=== PATIENT | female | born 1955 | race Caucasian/White ===

== ENCOUNTER 2019-06-01 11:42 | Emergency (ER) | payer OTHER ==
[2019-06-01 11:52] VITALS: BP 173/61; PULSE 95; TEMP 98.1; BMI 27.6
[2019-06-01] MEDS ORDERED: ACETAMINOPHEN 325 MG TABLET (FP) PO ONE (12:31)
[2019-06-01] MEDS ORDERED: LIDOCAINE 5% TOPICAL PATCH TP ONE ×2 (12:32→12:59)
--- NOTE | 2019-06-01 12:55 | PDOC ---
History of Present Illness - General Chief Complaint: Injury Stated Complaint: FALL Time Seen by Provider: 06/01/19 11:53 History Source: Patient Exam Limitations: No Limitations - History of Present Illness Is this a multiple visit Asthma Patient?: No Past History - Travel Traveled outside of the country in the last 30 days: No Close contact w/someone who was outside of country & ill: No - Past Medical History Allergies/Adverse Reactions: Allergies Allergy/AdvReac Type Severity Reaction Status Date / Time morphine Allergy Verified 06/01/19 11:52 Home Medications: Ambulatory Orders Methocarbamol [Robaxin -] 500 mg PO BID #14 tablet 06/01/19 COPD: No HTN: Yes - Psycho Social/Smoking Cessation Hx Smoking History: Never smoked Information on smoking cessation initiated: No Hx Alcohol Use: No Drug/Substance Use Hx: No Review of Systems - Review of Systems Able to Perform ROS?: Yes Comments:: 06/01/19 12:32 CONSTITUTIONAL: Absent: fever, chills, diaphoresis, generalized weakness, malaise, loss of appetite HEENT: Absent: rhinorrhea, nasal congestion, throat pain, throat swelling, difficulty swallowing, mouth swelling, ear pain, eye pain, visual Changes MUSCULOSKELETAL: Present: R shoulder pain, low back pain, R ankle pain Absent: arthralgia, joint swelling SKIN: Absent: rash, itching, pallor NEUROLOGIC: Absent: headache, focal weakness or paresthesias, dizziness, unsteady gait, seizure, mental status changes, bladder or bowel incontinence PSYCHIATRIC: Absent: anxiety, depression, suicidal or homicidal ideation, hallucinations. Is the patient limited Hungarian proficient: No *Physical Exam - Vital Signs Last Vital Signs Temp Pulse Resp BP Pulse Ox 98.1 F 95 H 18 173/61 H 98 06/01/19 11:49 06/01/19 11:49 06/01/19 11:49 06/01/19 11:49 06/01/19 11:49 - Physical Exam Comments: 06/01/19 13:47 GENERAL: Well developed, well nourished. Awake and alert. No acute distress. HEENT: Normocephalic, atraumatic. PERRLA, EOMI. No conjunctival pallor. Sclera are non- icteric. Moist mucous membranes. Oropharynx is clear. NECK: Supple. Full ROM. No JVD. Carotid pulses 2+ and symmetric, without bruits. No thyromegaly. No lymphadenopathy. CARDIOVASCULAR: Regular rate and rhythm. No murmurs, rubs, or gallops. Distal pulses are 2+ and symmetric. PULMONARY: No evidence of respiratory distress. Lungs clear to auscultation bilaterally. No wheezing, rales or rhonchi. ABDOMINAL: Soft. Non-tender. Non-distended. No rebound or guarding. No organomegaly. Normoactive bowel sounds. MUSCULOSKELETAL Tenderness palpation of the right paraspinous muscles L3-L5 with palpable spasm. Negative straight leg raise test. No midline tenderness. Tenderness to palpation of the right lateral and medial malleolus of the ankle. Full range of motion of the ankle noted. No swelling noted. Patient with tenderness to palpation of the right trapezius muscle near the shoulder joint. Full range of motion of the shoulder noted. Negative drop arm test. Normal range of motion at all joints. No bony deformities or tenderness. No CVA tenderness. EXTREMITIES: No cyanosis. No clubbing. No edema. No calf tenderness. SKIN: Warm and dry. Normal capillary refill. No rashes. No jaundice. NEUROLOGICAL: Alert, awake, appropriate. Cranial nerves 2-12 intact. No deficits to light touch and temperature in face, upper extremities and lower extremities. No motor deficits in the in face, upper extremities and lower extremities. Normoreflexic in the upper and lower extremities. Normal speech. Toes are down- going bilaterally. Gait is normal without ataxia. PSYCHIATRIC: Cooperative. Good eye contact. Appropriate mood and affect. Medical Decision Making - Medical Decision Making 06/01/19 15:41 The patient is a 63-year-old female who presents to the ER today for injuries from a fall. She works in the [employer]. She states that she tripped over a power cord to a slow cooker while working today. She landed on her right side. Denies hitting her head or losing consciousness. She is now complaining of right-sided pain including right shoulder pain, right ankle pain and right lower back pain. Denies fevers, chills, loss of consciousness, head injury, numbness and tingling weakness of his extremities, saddle anesthesia and bladder bowel incontinence. A/P: Injuries from a fall See exam for physical findings X-rays of the shoulder, back and ankle show no acute pathology at this time. Most likely a muscle spasm of the low back causing the pain. Possible ankle sprain and shoulder sprain Recommend supportive therapy and PCP follow-up Discharge home I discussed the physical exam findings, ancillary test results and final diagnoses with the patient. I answered all of the patient's questions. The patient was satisfied with the care received and felt comfortable with the discharge plan and treatment plan. The Patient agrees to follow up with the primary care physician/specialist within 24-72 hours. Return precautions were given. Discharge - Discharge Information Problems reviewed: Yes Clinical Impression/Diagnosis: Fall Qualifiers: Encounter type: initial encounter Qualified Code(s): W19.XXXA - Unspecified fall, initial encounter Low back pain Qualifiers: Chronicity: acute Back pain laterality: right Sciatica presence: without sciatica Qualified Code(s): M54.5 - Low back pain Ankle pain Qualifiers: Chronicity: acute Laterality: right Qualified Code(s): M25.571 - Pain in right ankle and joints of right foot Shoulder pain Qualifiers: Chronicity: acute Laterality: right Qualified Code(s): M25.511 - Pain in right shoulder Disposition: HOME - Admission No - Additional Discharge Information Prescriptions: Methocarbamol [Robaxin -] 500 mg PO BID #14 tablet - Follow up/Referral Referrals: Tiffanie Jeffries MD [Primary Care Provider] - - Patient Discharge Instructions Patient Printed Discharge Instructions: DI for Low Back Pain Additional Instructions: You have low back pain due to a muscle spasm. Please take Tylenol 650 mg every 4 hours as needed for pain. You were also prescribed Robaxin. Please take this medication twice a day. Do not drive after taking this medication as it may make you sleepy. You may use warm compresses on your back to help with her symptoms. Please follow-up with your primary care doctor. If your symptoms do not resolve in 3-5 days, follow-up with orthopedics. A referral has been provided for you. You may also purchase lidocaine patches. These are over-the- counter. If you have trouble finding then please ask the pharmacist. Return to the emergency department if you have worsening back pain, bladder or bowel incontinence, numbness and tingling in her legs, changes in the way you walk, or any new or worsening symptoms. - Post Discharge Activity Work/Back to School Note: Back to Work
[2019-06-01] MEDS ORDERED: LIDOCAINE 5% TOPICAL PATCH ONE ×2 (12:56→12:59)
[2019-06-01] MEDS ORDERED: ACETAMINOPHEN 325 MG TABLET (FP) ONE (12:56)
--- NOTE | 2019-06-01 16:55 | RAPID ---
Physical Examination Vital Signs: Vital Signs Temperature 98.1 F 06/01/19 11:49 Pulse Rate 95 H 06/01/19 11:49 Respiratory Rate 18 06/01/19 11:49 Blood Pressure 173/61 H 06/01/19 11:49 O2 Sat by Pulse Oximetry (%) 98 06/01/19 11:49 Rapid Response - Rapid Response Assessment: Subjective: Rapid response was called overhead at 1135 today. scallop binder team quickly responded to cafeteria where patient was sitting on the floor between avila register and stove. Cafeteria staff and nursing informatics clinical analyst were surrounding patient. She reports tripping on a wire on the floor and falling on her right hip. She also hit her right shoulder on the stove. She denies hitting her head, dizziness, or loss of consciousness. She also denies numbness or tingling in feet. She stood up with assistance and was put in a wheelchair and immediately sent to ED. Objective: Vitals 201/89 98% 103HR PE A&O x 3 in no acute distress heart RRR lungs CTA bilaterally abdomen soft and non-tender right upper back and lumbar tender to palpation A/P: #mechanical fall Pt in no distress. Sent to ED for evaluation. Signed out to ED staff. #hypertension Pt reports taking HTN meds this morning. Notified nurse dining services manager and triage nurse of elevated pressure.
== END 2019-06-01 13:53 | disposition home or self-care (01) ==
LOC: JERFT 11:42
DX: M25.511 Pain in right shoulder (principal); M54.5 Low back pain; M25.571 Pain in right ankle and joints of right foot; Y99.0 Civilian activity done for income or pay; W01.0XXA Fall on same level from slipping, tripping and stumbling without subsequent striking against object, initial encounter; Y92.233 Cafeteria of hospital as the place of occurrence of the external cause; Y93.89 Activity, other specified; Z88.6 Allergy status to analgesic agent; I10 Essential (primary) hypertension
CPT/HCPCS: 72100-TC-FY; 73030-TC-RT-FY; 73610-TC-RT-FY; 73630-TC-RT-FY; 99281-25